=== PATIENT | female | born 1955 | race Caucasian/White ===

== ENCOUNTER 2019-03-07 01:32 | Inpatient (IN) ==
[2019-03-05 10:34] LABS: BASO# 0.03 X1000 (0.0-0.2); BASO% 0.5 % (0.0-0.8); EOS# 0.04 X1000 (0.0-0.7); EOS% 0.7 % (0.0-10.0); HEMATOCRIT 38.7 % (37.0-47.0); HEMOGLOBIN 12.5 g/dL (12.0-16.0); LYMPH# 1.93 X1000 (1.2-3.4); LYMPH% 31.7 % (20.5-51.1); MCH 29.5 PG (27-31); MCHC 32.3 g/dL (33-37); MCV 91.3 FL (81-99); MONO# 0.44 X1000 (0.11-0.59); MONO% 7.2 % (1.7-9.3); MPV 9.9 FL (7.4-10.4); NEUT# 3.65 X1000 (1.4-6.5); NEUT% 59.9 % (42.2-75.2); PLT 251 X1000 (130-400); RBC 4.24 XMIL (4.2-5.4); RDW 13.9 % (11.5-14.5); WBC 6.09 X1000 (4.8-10.8)
[2019-03-05 10:59] LABS: AGAP 13; BUN 7 mg/dL (8-22); CALCIUM 9.8 mg/dL (8.8-10.2); CHLORIDE 94 mmol/L (98-107); COSMO 268; CREATININE 0.7 mg/dL (0.5-0.9); ESTIMATED GFR > 60; GLUCOSE 98 mg/dL (70-104); SODIUM 135 mmol/L (136-145); TCO2 28 mmol/L (25-35)
[2019-03-07] MEDS ORDERED: KEFZOL 1 GM/D5W 2 GM/100 ML IVPB ONE (06:10)
[2019-03-07] MEDS ORDERED: LR 1,000 ML ONE (06:10)
[2019-03-07] MEDS ORDERED: XYLOCAINE-MPF 2% ONE (07:44)
[2019-03-07] MEDS ORDERED: DIPRIVAN 1% ONE (07:45)
[2019-03-07] MEDS ORDERED: FENTANYL ONE ×2 (08:12→09:44)
[2019-03-07] MEDS ORDERED: ROBINUL ONE (08:24)
[2019-03-07] MEDS ORDERED: DECADRON ONE (08:39)
[2019-03-07] MEDS ORDERED: ZOFRAN ONE (08:39)
[2019-03-07] MEDS ORDERED: OFIRMEV 1000 MG/ISOTONIC SOLN 1,000 MG/100 ML BOTTLE ONE (08:44)
[2019-03-07] MEDS ORDERED: XYLOCAINE 1% ONE (10:23)
[2019-03-07] MEDS ORDERED: MARCAINE 0.5% PF ONE (10:24)
[2019-03-07] MEDS ORDERED: MORPHINE IV PRN (10:31)
[2019-03-07] MEDS: DILAUDID ONE ×2 (11:28→11:33)
[2019-03-07] MEDS ORDERED: LASIX PO PRN (13:31)
[2019-03-07] MEDS: OXY IR PO PRN ×3 (14:01→21:22)
[2019-03-07] MEDS: KEFZOL 1 GM/D5W 1 GM/50 ML IVPB IV SCH (15:19)
[2019-03-07 15:21] LABS: URINE SOURCE CLEAN CATCH
[2019-03-07 15:24] LABS: BILIRUBIN URINE NEGATIVE (NEGATIVE); BLOOD URINE NEGATIVE (NEGATIVE); COLOR STRAW; GLUCOSE URINE NEGATIVE (NEGATIVE); KETONE URINE NEGATIVE (NEGATIVE); LEUKOCYTES URINE NEGATIVE (NEGATIVE); NITRITE URINE NEGATIVE (NEGATIVE); PH URINE 6.5; PROTEIN URINE NEGATIVE (NEGATIVE); SP GRAVITY URINE 1.006; TURBIDITY URINE CLEAR (CLEAR); UR EPITHELIAL CELLS <10 /HPF (<10); URINE BACTERIA NEGATIVE /HPF; URINE RBC <10 /HPF (<10); URINE WBC <10 /HPF (<10); UROBILINOGEN URINE NORMAL (NORMAL)
[2019-03-07] MEDS ORDERED: PNEUMOVAX 23 IM ONE (15:46)
--- NOTE | 2019-03-07 16:21 | OPERATIVE NOTE ---
PROCEDURE DATE: 03/07/2019 PREOPERATIVE DIAGNOSIS: Left posttraumatic ankle osteoarthritis. POSTOPERATIVE DIAGNOSIS: Left posttraumatic ankle osteoarthritis. PROCEDURES: 1. Left ankle fusion. 2. Left bone graft major from the calcaneus. SURGEON: Dr. Marcus Leon CARPET MECHANIC: GUNJAN Yusuf, who was an integral part of the case helping with all aspects of the case, helping increase our OR efficiency greatly. ANESTHESIA: General with LMA. TOURNIQUET TIME: Just over 2 hours. IMPLANTS: Into bones ankle fusion plate and screws. DISPOSITION: To PACU, hemodynamically stable. INDICATION FOR PROCEDURE: Ms. Esparza is a 63-year-old female who was seen in clinic for evaluation of this left ankle pain. Diagnosed her with posttraumatic ankle osteoarthritis. Discussed nonoperative and operative intervention with her and she ultimately decided on operative intervention. DESCRIPTION OF PROCEDURE: Ms. Esparza was identified in the preoperative holding area. The left ankle was marked as the correct surgical site. She was then wheeled to the operating room, placed supine on the operating table. All bony prominences well padded. She was she was induced under general anesthesia. LMA was placed. Tourniquet placed to the left thigh. Left lower extremity then prepped with chlorhexidine, gluconate scrub and then ChloraPrep, and draped in a normal sterile fashion. Surgical pause was performed. We identified the correct patient, correct side, and the correct procedure. Preoperative antibiotics were given. Esmarch was used to exsanguinate the left lower extremity and tourniquet was inflated to 300 mmHg. I started with an anterior ankle incision. Dissection was carried down. We retracted the neurovascular bundle actually medially. It seemed to be best that way. Exposed then the ankle joint. There was really no cartilage at all left and the talus was very flat. I used a lamina underground mine machinery mechanic. I was able to gain access to the ankle joint. We denuded all the poor quality bone that was there which did leave a little bit of a crater in the talus. We got back to really healthy appearing bone on both the tibia and the talus. After we had a really thorough debridement of the joint and the bone looked to be nice and viable I then made a small incision on the lateral aspect of the calcaneus. Dissection was carried down all the way to bone. I then used a bone reamer and was able to make 2 passes and get some bone graft for our fusion. I then closed that incision with nylon. I then made 1 more pass in the distal tibia and we got good bone graft. We mixed that with demineralized bone matrix to be used at our fusion site. I then prepared the fusion site by drilling both sides, and then used an osteotome to really break apart a lot of that bone so we could have a nice raw bone surface to heal. I then placed the bone graft there. We reduced our deformity which was in just a little bit of varus. I placed 2 lag screws 1 medial 1 lateral and that went more on the posterior aspect of the talus and then put our plate on. I was able to get 3 screws in the talus and then 4 screws in the tibia. Overall position looked really good in both AP and lateral views. Clinically everything looked good as well. We then closed everything in a layered fashion, 0 Vicryl for the deep layer, 2-0 Vicryl for the subcutaneous and nylon on the skin. Adaptic 4x4s, ABD, soft roll, posterior splint was applied. Tourniquet was let down. The patient had good capillary refill return to the toes. She was then wheeled from general anesthesia, moved to her own bed and taken to PACU in stable condition. Postoperatively, she will be nonweightbearing. She will be admitted and we will get social work supervisor involved for discharge placement. cc: Marcus Leon MD
[2019-03-07] MEDS: NEURONTIN PO SCH (17:58)
[2019-03-07] MEDS: GEODON PO SCH (20:27)
[2019-03-07] MEDS: METAMUCIL PO SCH (20:27)
[2019-03-07] MEDS: FISH OIL CONCENTRATE PO SCH (20:27)
[2019-03-07] MEDS: PERIDEX MT SCH (20:30)
[2019-03-08] MEDS: KEFZOL 1 GM/D5W 1 GM/50 ML IVPB IV SCH ×2 (00:21→07:38)
[2019-03-08] MEDS: OXY IR PO PRN ×6 (04:35→22:20)
[2019-03-08] MEDS: LOVENOX SUBQ SCH (05:08)
[2019-03-08] MEDS: PRILOSEC PO SCH ×2 (05:08→06:16)
[2019-03-08] MEDS: SYNTHROID PO SCH ×2 (05:08→06:16)
[2019-03-08] MEDS ORDERED: LOPRESSOR PO SCH (09:00)
[2019-03-08] MEDS: TOPROL XL PO SCH (09:11)
[2019-03-08] MEDS: VITAMIN B-12 PO SCH (09:11)
[2019-03-08] MEDS: ASPIRIN PO SCH (09:12)
[2019-03-08] MEDS: OSCAL 500 + D PO SCH (09:12)
[2019-03-08] MEDS: GLUCOPHAGE XR PO SCH (09:12)
[2019-03-08] MEDS: MAG-OX PO SCH (09:12)
[2019-03-08] MEDS: NEURONTIN PO SCH ×3 (09:12→22:20)
[2019-03-08] MEDS: PAXIL PO SCH (09:12)
[2019-03-08] MEDS: PERIDEX MT SCH ×2 (09:12→22:20)
[2019-03-08] MEDS: METAMUCIL PO SCH ×2 (09:12→22:20)
[2019-03-08] MEDS: FISH OIL CONCENTRATE PO SCH ×2 (09:12→22:20)
[2019-03-08] MEDS: FERGON PO SCH (09:12)
--- NOTE | 2019-03-08 14:20 | ORTHOPAEDICS PROGRESS NOTE ---
DATE: 03/08/2019 SUBJECTIVE DATA: Ms. Esparza is lying comfortably in bed. She states her pain is well controlled. OBJECTIVE DATA: Left lower extremity exam, her surgical splint is still clean, dry, and intact. She is able to move the toes. She does have altered sensation to the toes related to her neuropathy. ASSESSMENT: Status post left ankle fusion. PLAN: It seems that Ms. Azul is recovering well postoperatively. Her pain is pretty well controlled. Preoperatively, she was requiring maximum assistance with ambulating and she was mostly using a wheelchair. She will be nonweightbearing to this left lower extremity. Because of this, we do believe that Ms. Azul would greatly benefit from a rehab stay. She does also have a history of type 2 diabetes and some coronary artery disease. So, we will make sure Wood Inspector and Case Management see her today and see if we can get her placed in a rehab. We will follow her while she is in the hospital. Dictated by GUNJAN Yusuf for Marcus Leon MD cc: GUJNAN Yusuf MD
--- NOTE | 2019-03-08 15:52 | Diag Imaging Result Doc PS360 ---
EXAM: CHEST-1 VIEW HISTORY: rehab placement TECHNIQUE: Single view COMPARISON: None. FINDINGS: Poor inspiratory effort. The heart is not enlarged. The vessels are not distended. There are no infiltrates. No effusion identified. IMPRESSION: Negative exam. Electronically signed by Ty Dela Cruz 03/08/2019 3:50 PM
[2019-03-08] MEDS: GEODON PO SCH (22:19)
[2019-03-09] MEDS: OXY IR PO PRN ×6 (01:33→21:28)
[2019-03-09] MEDS: SYNTHROID PO SCH (06:04)
[2019-03-09] MEDS: PRILOSEC PO SCH (06:04)
[2019-03-09] MEDS: LOVENOX SUBQ SCH (06:04)
[2019-03-09] MEDS: PERIDEX MT SCH ×2 (08:35→21:28)
[2019-03-09] MEDS: OSCAL 500 + D PO SCH (08:36)
[2019-03-09] MEDS: FERGON PO SCH (08:36)
[2019-03-09] MEDS: TOPROL XL PO SCH (08:36)
[2019-03-09] MEDS: GLUCOPHAGE XR PO SCH (08:36)
[2019-03-09] MEDS: METAMUCIL PO SCH ×2 (08:37→21:28)
[2019-03-09] MEDS: PAXIL PO SCH (08:37)
[2019-03-09] MEDS: VITAMIN B-12 PO SCH (08:38)
[2019-03-09] MEDS: ASPIRIN PO SCH (08:38)
[2019-03-09] MEDS: MAG-OX PO SCH (08:38)
[2019-03-09] MEDS: FISH OIL CONCENTRATE PO SCH ×2 (08:39→21:28)
[2019-03-09] MEDS: NEURONTIN PO SCH ×3 (08:44→17:13)
[2019-03-09] MEDS: GEODON PO SCH (21:28)
[2019-03-10] MEDS: LOVENOX SUBQ SCH (05:37)
[2019-03-10] MEDS: OXY IR PO PRN ×5 (05:37→21:30)
[2019-03-10] MEDS: PRILOSEC PO SCH ×2 (05:37→07:45)
[2019-03-10] MEDS: SYNTHROID PO SCH ×2 (05:37→07:45)
[2019-03-10] MEDS: VITAMIN B-12 PO SCH (08:18)
[2019-03-10] MEDS: PERIDEX MT SCH ×2 (08:18→20:58)
[2019-03-10] MEDS: GLUCOPHAGE XR PO SCH (08:18)
[2019-03-10] MEDS: FISH OIL CONCENTRATE PO SCH ×2 (08:18→20:58)
[2019-03-10] MEDS: FERGON PO SCH (08:19)
[2019-03-10] MEDS: ASPIRIN PO SCH (08:19)
[2019-03-10] MEDS: TOPROL XL PO SCH (08:19)
[2019-03-10] MEDS: NEURONTIN PO SCH ×3 (08:19→18:22)
[2019-03-10] MEDS: MAG-OX PO SCH (08:19)
[2019-03-10] MEDS: METAMUCIL PO SCH ×2 (08:19→20:59)
[2019-03-10] MEDS: OSCAL 500 + D PO SCH (08:19)
[2019-03-10] MEDS: PAXIL PO SCH (08:20)
[2019-03-10] MEDS: MIRALAX PO SCH (14:42)
[2019-03-10] MEDS: GEODON PO SCH (20:58)
[2019-03-10] MEDS: COLACE PO SCH (21:02)
[2019-03-11] MEDS: PRILOSEC PO SCH (06:32)
[2019-03-11] MEDS: SYNTHROID PO SCH (06:32)
[2019-03-11] MEDS: LOVENOX SUBQ SCH (06:32)
[2019-03-11] MEDS: FISH OIL CONCENTRATE PO SCH (11:58)
[2019-03-11] MEDS: METAMUCIL PO SCH (11:58)
[2019-03-11] MEDS: PERIDEX MT SCH (11:58)
[2019-03-11] MEDS: COLACE PO SCH (11:58)
[2019-03-11] MEDS: TOPROL XL PO SCH (11:59)
[2019-03-11] MEDS: OSCAL 500 + D PO SCH (11:59)
[2019-03-11] MEDS: PAXIL PO SCH (11:59)
[2019-03-11] MEDS: ASPIRIN PO SCH (11:59)
[2019-03-11] MEDS: FERGON PO SCH (11:59)
[2019-03-11] MEDS: MAG-OX PO SCH (11:59)
[2019-03-11] MEDS: NEURONTIN PO SCH (11:59)
[2019-03-11] MEDS: VITAMIN B-12 PO SCH (11:59)
[2019-03-11] MEDS: MIRALAX PO SCH (12:00)
[2019-03-11] MEDS: GLUCOPHAGE XR PO SCH (12:00)
[2019-03-11] MEDS: OXY IR PO PRN (12:00)
[2019-03-11 12:21] VITALS: BP 158/99
--- NOTE | 2019-03-11 12:40 | DISCHARGE SUMMARY ---
ADMISSION DATE: 03/07/2019 DISCHARGE DATE: 03/11/2019 ADMITTING DIAGNOSES: 1. Left posttraumatic ankle osteoarthritis. 2. Diabetes mellitus type 2. DISCHARGE DIAGNOSES: 1. Left posttraumatic ankle osteoarthritis. 2. Diabetes mellitus type 2. PROCEDURES: On 03/07/2019, Dr. Leon performed a left ankle fusion. HOSPITAL COURSE: Ms. Esparza is a 63-year-old female who was being followed in the office for her left posttraumatic ankle osteoarthritis. We tried several conservative treatment options including bracing but unfortunately, this did not really relieve her pain. It was discussed that she would proceed with a left ankle fusion. She was taken the operating room on 03/07/[address] Leon. Satisfactory anesthesia was obtained. She tolerated the procedure well and was transferred to the recovery room. After satisfactory recovery, she was transferred to [address] [place] [address]. She has had a fairly uneventful postoperative course. She has had difficulty mobilizing. She does have several medical issues including uncontrolled diabetes mellitus as well as a past history of a stroke. We will plan on her doing a rehab stay. Currently, she is sitting on the side of the bed and eating lunch. Her pain is controlled with pain medication. She has voided since surgery. Her current vital signs, temperature is 98.3 degrees, pulse 74, respirations 20, blood pressure 137/80, she is 100% on room air. At this time, she is ready for discharge. DISCHARGE MEDICATIONS: Prilosec 20 mg p.o. daily, Percocet 5 mg p.o. every 4 hours as needed for pain, Paxil 40 mg p.o. daily, MiraLAX 17 g p.o. daily, Metamucil 1 p.o. b.i.d., Geodon 120 mg p.o. at bedtime, Glucophage 750 mg p.o. daily, Toprol-XL 25 mg p.o. daily, magnesium oxide 200 mg p.o. daily, Synthroid 88 mcg p.o. daily, Neurontin 300 mg p.o. t.i.d., Lasix 20 mg p.o. daily as needed for edema, Fergon 240 mg p.o. daily, Lovenox 40 mg subcutaneous daily x30 days, Colace 100 mg p.o. b.i.d., vitamin B12 with 1000 mcg p.o. daily, aspirin 81 mg p.o. daily. DISCHARGE DISPOSITION: Ms. Esparza is being discharged to [facility]. She will be able to continue to mobilize and work on her recovery there. She is a high fall risk. She did have trouble mobilizing prior to the surgery and she will be nonweightbearing to this left lower extremity postoperatively. She will need aggressive physical therapy and maximum assistance while she is recovering. We feel that the rehab will benefit her greatly. The surgical splint will remain in place until she follows up with Dr. Leon in 1 to 2 weeks. Again, she will be nonweightbearing on this left lower extremity. We are going to do Lovenox for DVT prophylaxis. She was on Eliquis but the patient states it was stopped in December. We are going to continue her Lovenox until we can get more information on that. This will at least cover her for a DVT. We will do Percocet for pain control. If there are any questions or concerns, please call the office. Dictated by GUNJAN Yusuf for Marcus Leon MD cc: GUNJAN Yusuf MD
== END 2019-03-11 14:10 | DRG 493 ==
LOC: SURHOLD 01:32 → 4N 08:34
PROVIDERS: ADMIT Orthopaedic Surgery; ATTEND Orthopaedic Surgery